=== PATIENT | male | born 1950 | race Hispanic/Latino ===

== ENCOUNTER 2022-07-05 13:13 | Emergency (ER) | payer MEDICARE ==
[~2022-07-05] VITALS: Ht 160 cm; Wt 79.8 kg
== END 2022-07-05 13:54 | disposition home or self-care (01) ==
LOC: EDSEX 13:22 → ER 13:22
DX: M54.41 Lumbago with sciatica, right side (principal)
CPT/HCPCS: 99282

== ENCOUNTER 2023-03-25 13:56 | Emergency (ER) | payer MEDICARE ==
[~2023-03-25] VITALS: Ht 160 cm; Wt 79.8 kg
[2023-03-25] MEDS ORDERED: RABIES IMMUNE GLOBULIN/PF 150 UNIT/ML VIAL IM ONE (14:15)
[2023-03-25] MEDS ORDERED: TETANUS/DIPHTHERIA TOX ADULT 0.5 ML SYR IM ONE (14:15)
[2023-03-25] MEDS ORDERED: RABIES VAC,PF CHICK-EMB CELL 2.5/KIT IM ONE (14:15)
[2023-03-25] MEDS ORDERED: AMOX TR-K CLV1 EAC2 PO (15:37)
== END 2023-03-25 16:03 | disposition home or self-care (01) ==
LOC: ER 14:05
DX: S71.151A Open bite, right thigh, initial encounter (principal); W55.51XA Bitten by raccoon, initial encounter; Y92.89 Other specified places as the place of occurrence of the external cause; I10 Essential (primary) hypertension; I50.9 Heart failure, unspecified; E78.5 Hyperlipidemia, unspecified; M54.9 Dorsalgia, unspecified; G89.29 Other chronic pain
CPT/HCPCS: 90471; 90714; 99283